=== PATIENT | male | born 1985 | race Two or more races ===

== ENCOUNTER 2024-10-01 11:56 | Inpatient (IN) | payer SELFPAY ==
[2024-10-01] MEDS ORDERED: Magnesium 2 GM/50 ML BAG (IN WATER) ONE (11:58)
[2024-10-01] MEDS ORDERED: Aspirin Chewable 81 MG TAB ONE ×2 (12:13→12:18)
[2024-10-01 12:14] LABS: #Basophils Less than 0.03 10x3/uL (0.0-0.2); %Basophils 0.4 % (0.0-1.0); %Eosinophils 4.3 % (0.0-10.0); %Monocytes 9.4 % (0.0-10.0); %Neutrophils 38.5 % (42.0-75.0); Hematocrit 43.9 % (42.0-52.0); Mean Corpuscular HGB CONC 34.2 g/dL (32.0-36.0); Mean Corpuscular Hemoglobin 30.8 pg (27.0-31.0); Mean Corpuscular Volume 90.1 fL (78.0-98.0); Mean Platelet Volume 10.2 fL (7.4-10.4); Platelet Count 240 10x3/uL (130-400); RBC Distribution Width 13.2 % (11.5-14.5); Red Blood Cell (RBC) Count 4.87 mill/uL (4.70-6.10)
[2024-10-01] MEDS ORDERED: Nitroglycerin 50 MG/250 ML BOT 0 ML ONE (12:14)
[2024-10-01] MEDS ORDERED: Nitroglycerin 0.4 MG TAB 1 EACH ONE (12:14)
[2024-10-01 12:28] LABS: Actual Bicarbonate (HCO3v) 20.5 mEq/L (22-28); Analyzer IN Cardio ER; Base Excess -3.8 mEq/L (-2.0 to +3.0); Chloride (VBG) 102 mmol/L (98-106); Hematocrit-VBG 47 % (42.0-52.0); Hemoglobin (Hb) 15.9 g/dL (13.2-17.3); Potassium (VBG) 3.12 mmol/L (3.70-5.30); Sodium 140 mmol/L (133-146); pH (venous) 7.378 (7.32-7.43)
[2024-10-01 12:37] LABS: ALT (SGPT) 53 U/L (Less than 45); AST (SGOT) 48 U/L (11-34); Albumin 3.8 g/dL (3.1-4.5); Alkaline Phosphatase 100 U/L (40-110); Anion Gap 15 mmol/L (10-20); BUN (Urea Nitrogen) 15 mg/dL (8.9-20.6); Bilirubin, Total 0.6 mg/dL (0.3-1.2); Calc. Creatinine Clearance 0 mL/min (70-130); Calcium 8.8 mg/dL (7.8-10.44); Carbon Dioxide 22 mmol/L (22-29); Chloride 105 mmol/L (98-107); Estimated GFR 76; Globulin 3.9 g/dL (2.4-3.5); Glucose 178 mg/dL (70-105); Magnesium 1.9 mg/dL (1.6-2.6); Potassium 2.9 mmol/L (3.5-5.1); Protein, Total 7.7 g/dL (6.0-8.3); Sodium 139 mmol/L (136-145)
[2024-10-01 12:41] LABS: Troponin I 0.087 ng/mL (< 0.028)
[2024-10-01] MEDS ORDERED: Potassium Chloride 20 MEQ TAB ONE (13:08)
[2024-10-01] MEDS ORDERED: Morphine 4 MG/ML VIAL ONE (13:09)
[2024-10-01] MEDS ORDERED: Ondansetron ODT 4 MG TAB PO PRN (13:45)
[2024-10-01] MEDS ORDERED: Ondansetron PF 4 MG/2 ML Vial IVP PRN (13:45)
[2024-10-01] MEDS ORDERED: Electrolyte Replacement Protocol FS SCH (14:00)
[2024-10-01] MEDS ORDERED: Nitroglycerin 50 MG/250 ML BOT 250 ML ONE (14:11)
[2024-10-01 14:30] LABS: Prothrombin Time 13.7 sec (12.0-14.7)
[2024-10-01 14:31] LABS: Magnesium 2.4 mg/dL (1.6-2.6)
[2024-10-01 14:37] LABS: Troponin I 0.161 ng/mL (< 0.028)
[2024-10-01] MEDS ORDERED: Furosemide 40 MG (4 mL) VIAL ONE (16:25)
[2024-10-01] MEDS ORDERED: Dextrose 5% in Water 1,000 ML IV PRN (16:50)
[2024-10-01] MEDS ORDERED: Dextrose 50% Abboject 50 ML SYRINGE SLOW IVP PRN (16:50)
[2024-10-01] MEDS ORDERED: Glucagon 1 MG/ML KIT IM PRN (16:50)
[2024-10-01] MEDS ORDERED: Insulin Regular, Human 100 UNIT/ML 10 ML VIAL SC PRN (16:50)
[2024-10-01 17:27] LABS: Bacteria/HPF None Seen HPF (None Seen); Bilirubin Negative (Negative); Blood, Urine Negative (Negative); CAUTI Indications for Culture Alt mental st,lethar; Clarity Clear (Clear); Glucose, Urine (Dipstick) 70 mg/dL (Negative); Ketone, Urine Negative (Negative); Leukocyte Negative Leu/uL (Negative); Nitrite Negative (Negative); Protein, Urine (Dipstick) 300 mg/dL (Neg-Trace); RBC/HPF 0-3 HPF (0-3); Specific Gravity, Urine 1.019 (1.002-1.036); Squamous Epithelial 0-3 HPF (0-3); Urobilinogen Normal mg/dL (Less than 2); WBC/HPF 0-3 HPF (0-3); pH, Urine 6.5 (5.0-9.0)
[2024-10-01 17:29] LABS: Urine Culture Reflex No No
[2024-10-01 17:33] LABS: Lactic Acid 2.68 mmol/L (0.50-2.20)
[2024-10-01 17:36] LABS: Troponin I 0.138 ng/mL (< 0.028)
[2024-10-01] MEDS: Furosemide 40 MG (4 mL) VIAL SLOW IVP SCH ×2 (18:10→21:35)
[2024-10-01] MEDS ORDERED: niCARdipine 25 MG/10 ML SDV ONE (18:22)
[2024-10-01] MEDS ORDERED: Insulin Regular, Human 100 UNIT/ML 10 ML VIAL ONE (18:23)
[2024-10-01] MEDS ORDERED: Nitroglycerin 2% Ointment 1 INCH/1 GM Packet ONE (18:33)
[2024-10-01] MEDS: niCARdipine 25 MG in Sodium Chloride 0.9% 250 ML 250 ML IVPB SCH (18:55)
[2024-10-01 20:24] LABS: Anion Gap 18 mmol/L (10-20); BUN (Urea Nitrogen) 16 mg/dL (8.9-20.6); Calc. Creatinine Clearance 114 mL/min (70-130); Calcium 9.1 mg/dL (7.8-10.44); Carbon Dioxide 20 mmol/L (22-29); Chloride 104 mmol/L (98-107); Estimated GFR 72; Glucose 215 mg/dL (70-105); Sodium 138 mmol/L (136-145)
[2024-10-01] MEDS: Nitroglycerin 2% Ointment 1 INCH/1 GM Packet TOP SCH (20:57)
[2024-10-01] MEDS: Famotidine 20 MG TAB PO SCH (21:35)
[2024-10-01] MEDS: Insulin Regular, Human 100 UNIT/ML 10 ML VIAL SC PRN (21:50)
[2024-10-01 22:38] VITALS: BMI 32.8
[2024-10-01 23:26] LABS: Creatinine, Urine 10.42 mg/dL (24.00-392.00)
[2024-10-01 23:27] LABS: Amphetamine Not Detected (NotDetected); Barbiturates Screen Not Detected (NotDetected); Benzodiazepine Screen Not Detected (NotDetected); Cocaine Metabolite Screen Not Detected (NotDetected); Methadone Not Detected (NotDetected); Methamphetamine Not Detected (NotDetected); Opiate Screen Detected (NotDetected); Oxycodone Screen Not Detected (NotDetected); Phencyclidine (PCP) Not Detected (NotDetected); THC/Cannabinoid Screen Not Detected (NotDetected); Tricyclic Screen Not Detected (NotDetected)
[2024-10-01 23:28] LABS: Protein, Urine Random Quant Less than 10 mg/dL (1-14)
[2024-10-02 05:48] LABS: #Basophils Less than 0.03 10x3/uL (0.0-0.2); #Eosinophils Less than 0.03 10x3/uL (0.0-0.7); %Basophils 0.1 % (0.0-1.0); %Lymphocytes 12.2 % (21.0-51.0); %Monocytes 2.4 % (0.0-10.0); Hematocrit 40.3 % (42.0-52.0); Hemoglobin 13.9 g/dL (14.0-18.0); Mean Corpuscular HGB CONC 34.5 g/dL (32.0-36.0); Mean Corpuscular Hemoglobin 30.6 pg (27.0-31.0); Mean Corpuscular Volume 88.8 fL (78.0-98.0); Mean Platelet Volume 10.3 fL (7.4-10.4); Platelet Count 262 10x3/uL (130-400); RBC Distribution Width 13.5 % (11.5-14.5); Red Blood Cell (RBC) Count 4.54 mill/uL (4.70-6.10)
[2024-10-02] MEDS ORDERED: Labetalol HCl 100 MG/20 ML VIAL SLOW IVP PRN (05:52)
[2024-10-02 06:03] LABS: ALT (SGPT) 48 U/L (Less than 45); AST (SGOT) 36 U/L (11-34); Albumin 4.1 g/dL (3.1-4.5); Alkaline Phosphatase 95 U/L (40-110); Anion Gap 16 mmol/L (10-20); BUN (Urea Nitrogen) 19 mg/dL (8.9-20.6); Bilirubin, Total 0.5 mg/dL (0.3-1.2); Calc. Creatinine Clearance 122 mL/min (70-130); Calcium 9.9 mg/dL (7.8-10.44); Carbon Dioxide 21 mmol/L (22-29); Cardiac Risk 4.4 (Less than 4.5); Chloride 102 mmol/L (98-107); Cholesterol 263 mg/dl (< 200 Desired); Estimated GFR 84; Globulin 3.9 g/dL (2.4-3.5); Glucose 191 mg/dL (70-105); HDL Cholesterol 60 mg/dL (>60 Neg Risk); LDL Cholesterol, Calculated 190 mg/dL; Potassium 3.7 mmol/L (3.5-5.1); Sodium 135 mmol/L (136-145); Triglycerides 66 mg/dL (Less than 150)
[2024-10-02] MEDS: Enoxaparin 40 MG (0.4 mL) SYRINGE SC SCH (08:05)
[2024-10-02] MEDS: Aspirin Chewable 81 MG TAB PO SCH (08:05)
[2024-10-02] MEDS: NIFEdipine XL 60 MG ER.TAB PO SCH (09:41)
[2024-10-02] MEDS: Atorvastatin Calcium 20 MG TAB PO SCH (20:31)
[2024-10-02] MEDS: Metoprolol Tartrate 25 MG TAB PO SCH (20:31)
[2024-10-03 04:06] LABS: #Basophils Less than 0.03 10x3/uL (0.0-0.2); #Eosinophils Less than 0.03 10x3/uL (0.0-0.7); %Basophils 0.1 % (0.0-1.0); %Lymphocytes 19.7 % (21.0-51.0); %Monocytes 8.1 % (0.0-10.0); %Neutrophils 71.6 % (42.0-75.0); Hematocrit 41.3 % (42.0-52.0); Hemoglobin 13.9 g/dL (14.0-18.0); Mean Corpuscular HGB CONC 33.7 g/dL (32.0-36.0); Mean Corpuscular Hemoglobin 30.5 pg (27.0-31.0); Mean Corpuscular Volume 90.6 fL (78.0-98.0); Mean Platelet Volume 10.6 fL (7.4-10.4); Platelet Count 269 10x3/uL (130-400); RBC Distribution Width 13.9 % (11.5-14.5); Red Blood Cell (RBC) Count 4.56 mill/uL (4.70-6.10)
[2024-10-03 04:22] LABS: Anion Gap 13 mmol/L (10-20); BUN (Urea Nitrogen) 30 mg/dL (8.9-20.6); Calc. Creatinine Clearance 91 mL/min (70-130); Calcium 9.3 mg/dL (7.8-10.44); Carbon Dioxide 25 mmol/L (22-29); Chloride 105 mmol/L (98-107); Estimated GFR 58; Glucose 153 mg/dL (70-105); Magnesium 2.4 mg/dL (1.6-2.6); Potassium 3.5 mmol/L (3.5-5.1); Sodium 139 mmol/L (136-145)
[2024-10-03] MEDS: Metoprolol Tartrate 25 MG TAB PO SCH (08:34)
[2024-10-03] MEDS: NIFEdipine XL 90 MG ER.TAB PO SCH (10:42)
[2024-10-03] MEDS: Potassium Chloride 20 MEQ TAB PO SCH (11:29)
[2024-10-03] MEDS: Albuterol 2.5 MG (3 mL) NEB NEB PRN (12:08)
[2024-10-03] MEDS: guaiFENesin/DM ER PO SCH ×2 (12:22→20:32)
[2024-10-03] MEDS: Carvedilol 6.25 MG TAB PO SCH (17:12)
[2024-10-04 04:53] LABS: Anion Gap 14 mmol/L (10-20); BUN (Urea Nitrogen) 29 mg/dL (8.9-20.6); Calc. Creatinine Clearance 122 mL/min (70-130); Calcium 9.1 mg/dL (7.8-10.44); Carbon Dioxide 24 mmol/L (22-29); Chloride 108 mmol/L (98-107); Estimated GFR 84; Glucose 109 mg/dL (70-105); Potassium 3.6 mmol/L (3.5-5.1); Sodium 142 mmol/L (136-145)
[2024-10-04] MEDS: NIFEdipine XL 60 MG ER.TAB PO SCH (07:40)
[2024-10-04 07:42] VITALS: TEMP 97.8
[2024-10-04] MEDS: Carvedilol 25 MG TAB PO SCH (10:28)
[2024-10-04 11:51] VITALS: BP 113/79
[2024-10-04] MEDS ORDERED: Carvedilol 25 MG TAB PO SCH (17:00)
[2024-10-04] MEDS ORDERED: NIFEdipine XL 60 MG ER.TAB PO SCH (21:00)
== END 2024-10-04 14:44 | disposition home or self-care (01) | DRG 280 ==
LOC: ERS 11:56 → ERHOLD 13:52 → CCU 20:40 → PCU 10-02 06:53
PROVIDERS: ADMIT Family Medicine; ATTEND Internal Medicine
DX: I11.0 Hypertensive heart disease with heart failure (principal); J96.01 Acute respiratory failure with hypoxia; I21.A1 Myocardial infarction type 2; I16.1 Hypertensive emergency; N17.9 Acute kidney failure, unspecified; E78.5 Hyperlipidemia, unspecified; J45.909 Unspecified asthma, uncomplicated; R73.9 Hyperglycemia, unspecified; R74.01 Elevation of levels of liver transaminase levels; E87.6 Hypokalemia; Z87.891 Personal history of nicotine dependence; Z79.82 Long term (current) use of aspirin; Z79.899 Other long term (current) drug therapy
CPT/HCPCS: 36415; 36416; 71045; 80048; 80053; 80061; 80306; 82570; 82805; 83036; 83605; 83735; 83880; 84156; 84443; 84484; 85025; 85610; 85730; 87040; 87086; 87428; 93005; 93306; 94640; 94760; 96365; 96375; J1650; J1815; J1940; J2270; J3475; J7050; J7611